=== PATIENT | female | born 1985 | race Caucasian/White ===

== ENCOUNTER 2021-06-20 22:34 | Emergency (ER) | payer SELFPAY ==
[~2021-06-20] VITALS: Ht 177.8 cm; Wt 62.6 kg
[2021-06-20 22:46] VITALS: BP 121/73
--- NOTE | 2021-06-20 23:03 | NUR ---
PT TAKEN TO CT VIA [facility]
== END 2021-06-20 23:57 | disposition home or self-care (01) ==
LOC: ER 22:45
DX: T17.208A Unspecified foreign body in pharynx causing other injury, initial encounter (principal); X58.XXXA Exposure to other specified factors, initial encounter; Y93.89 Activity, other specified; Y92.89 Other specified places as the place of occurrence of the external cause; Y99.8 Other external cause status
CPT/HCPCS: 70486-TC; 70490-TC

== ENCOUNTER 2022-06-27 20:27 | Emergency (ER) | payer OTHER ==
[~2022-06-27] VITALS: Ht 167.6 cm; Wt 63.5 kg
--- NOTE | 2022-06-27 21:02 | NUR ---
BIBHUSANA FROM HOME C/O FEELING DIZZY AND OROZCO. PT A/OX4. TOLERATING R/A WELL WITH NO RESP DISTRESS. SAFETY MEASURES IN PLACE.
[2022-06-27] MEDS ORDERED: KETOROLAC TROMETHAMINE 15 MG/ML VIAL ONE (21:05)
--- NOTE | 2022-06-27 21:09 | NUR ---
[employer] OFFICER AT PT'S BEDSIDE
--- NOTE | 2022-06-27 21:12 | NUR ---
EKG AT BEDSIDE
--- NOTE | 2022-06-27 21:12 | NUR ---
BLOOD COLLECTED AND SENT TO LAB
[2022-06-27 21:21] LABS: BASOPHILS % (AUTO) 0.5 % (0.0-2.0); EOSINOPHILS % (AUTO) 0.5 % (0.0-6.0); HEMATOCRIT 37 % (33-45); HEMOGLOBIN 12.4 g/dL (11.5-14.8); LYMPHOCYTES # (AUTO) 1.2 K/uL (0.8-4.8); LYMPHOCYTES % (AUTO) 29.8 % (20.0-44.0); MEAN CORPUSCULAR HGB CONC 34 g/dl (31.0-36.0); MEAN CORPUSCULAR VOLUME 92 fL (82-100); MONOCYTES # (AUTO) 0.4 K/uL (0.1-1.30); MONOCYTES % (AUTO) 9.6 % (2.0-12.0); NEUTROPHILS # (AUTO) 2.4 K/uL (1.8-8.9); NEUTROPHILS % (AUTO) 59.6 % (43.0-81.0); PLATELET COUNT (AUTO) 134 K/uL (150-450); RED BLOOD CELL COUNT(AUTO) 4.03 MIL/uL (4.0-5.2)
--- NOTE | 2022-06-27 21:22 | NUR ---
URINE COLLECTED AND SENT TO LAB
[2022-06-27] MEDS ORDERED: KETOROLAC TROMETHAMINE INJ 30 MG/ML VIAL IV ONE (21:30)
[2022-06-27 21:44] LABS: CALCIUM, SERUM 7.9 mg/dL (8.5-10.1); CARBON DIOXIDE 26 mmol/L (21-32); CHLORIDE 105 mmol/L (98-107); CREATININE 0.8 mg/dL (0.6-1.3); GLUCOSE 111 mg/dL (74-106); POTASSIUM 3.6 mmol/L (3.5-5.1); SODIUM SERUM 137 mmol/L (136-145); UREA NITROGEN, BLOOD 14 mg/dL (7-18)
[2022-06-27 22:17] VITALS: BP 131/78
--- NOTE | 2022-06-27 22:17 | NUR ---
Patient discharged to home in stable condition. Written and verbal after care instructions given. Patient verbalizes understanding of instruction.
== END 2022-06-27 22:42 | disposition home or self-care (01) ==
LOC: ER 20:28
DX: R42 Dizziness and giddiness (principal); R07.9 Chest pain, unspecified; F41.9 Anxiety disorder, unspecified
CPT/HCPCS: 99285; 96374; 71045; 93005; 85025; 80048; 84703; 36415; 84484; J7040; J1885